=== PATIENT | female | born 1935 | race Asian ===

== ENCOUNTER 2017-05-01 16:07 | Inpatient (IN) | payer MEDICARE, OTHER ==
[~2017-05-01] VITALS: Ht 154.9 cm; Wt 75.9 kg
[2017-05-01] MEDS ORDERED: ASPIRIN 81 MG TABLET CHEW ONE (16:47)
[2017-05-01 17:06] LABS: ASPARTATE AMINO TRANSFERASE 27 U/L (15-37); BLOOD UREA NITROGEN 73 mg/dL (7-18)
[2017-05-01 17:24] LABS: IS PT STATUS REG ER OR PRE ER? YES
[2017-05-01] MEDS ORDERED: ASPIRIN 81 MG TABLET CHEW PO ONE (17:30)
[2017-05-01] MEDS ORDERED: ACETAMINOPHEN 325 MG TABLET PO PRN (19:00)
[2017-05-01] MEDS ORDERED: ONDANSETRON 2MG/ML, 2ML IVPush PRN (19:00)
[2017-05-01] MEDS ORDERED: POLYETHYLENE GLYCOL 17 GM PACKET PO PRN (19:00)
[2017-05-01] MEDS ORDERED: NITROGLYCERIN 0.4 MG BOTTLE (25 TABS) SL PRN (19:00)
[2017-05-01] MEDS ORDERED: morphine SULFATE 10 MG/ML, 1ML IVPush PRN (19:00)
[2017-05-01] MEDS ORDERED: BISACODYL 10 MG SUPP PR PRN (19:00)
[2017-05-01] MEDS ORDERED: GLUCAGON 1 MG IM PRN (20:00)
[2017-05-01] MEDS ORDERED: DEXTROSE 4 GM TAB.CHEW PO PRN (20:00)
[2017-05-01] MEDS ORDERED: DEXTROSE 50%, 50ML SYRINGE IVPush PRN (20:00)
[2017-05-01 20:48] VITALS: BP 167/79
[2017-05-01] MEDS ORDERED: CALC0.25 PO (21:45)
[2017-05-01] MEDS ORDERED: FURO40TA6 PO (21:45)
[2017-05-01] MEDS ORDERED: METO50TA11 PO (21:45)
[2017-05-01] MEDS ORDERED: ISOS30TA8 PO (21:45)
[2017-05-01] MEDS ORDERED: GABA-826 PO (21:45)
[2017-05-01] MEDS ORDERED: ATOR20TA9 PO (21:45)
[2017-05-01] MEDS ORDERED: AMLO10TA2 PO (21:45)
[2017-05-01] MEDS ORDERED: ATORVASTATIN 20 MG TABLET PO SCH (22:00)
[2017-05-01] MEDS: HEPARIN 5,000 UNITS/ML, 1ML SQ SCH (22:17)
[2017-05-01] MEDS: SODIUM CHLORIDE 0.9% 1,000 ML IV SCH (22:17)
[2017-05-01] MEDS: SODIUM CHLORIDE FLUSH 10ML SYR IVF SCH (22:17)
[2017-05-01] MEDS: INSULIN ASPART 100 UNITS/ML, PEN SQ-INSULIN SCH (22:18)
[2017-05-01] MEDS: GABAPENTIN 100 MG CAPSULE PO SCH (22:19)
[2017-05-01 23:51] LABS: IS PT STATUS REG ER OR PRE ER? NO
[2017-05-02 03:01] VITALS: BP 162/75
[2017-05-02 05:03] LABS: BLOOD UREA NITROGEN 72 mg/dL (7-18)
[2017-05-02 05:08] LABS: ASPARTATE AMINO TRANSFERASE 21 U/L (15-37)
[2017-05-02 05:09] LABS: IS PT STATUS REG ER OR PRE ER? NO
[2017-05-02] MEDS ORDERED: DEXTROSE 50%, 50ML VIAL ONE (05:46)
[2017-05-02 06:00] VITALS: BP 171/71
[2017-05-02] MEDS ORDERED: ASPIRIN 81 MG TABLET EC PO SCH (06:00)
[2017-05-02] MEDS: HEPARIN 5,000 UNITS/ML, 1ML SQ SCH ×2 (06:26→12:49)
[2017-05-02] MEDS: INSULIN ASPART 100 UNITS/ML, PEN SQ-INSULIN SCH ×2 (07:00→13:19)
[2017-05-02] MEDS: SODIUM CHLORIDE 0.9% 1,000 ML IV SCH (08:00)
[2017-05-02] MEDS: SODIUM CHLORIDE FLUSH 10ML SYR IVF SCH (08:14)
[2017-05-02] MEDS: GABAPENTIN 100 MG CAPSULE PO SCH (08:14)
[2017-05-02] MEDS ORDERED: REGADENOSON 0.4 MG/5 ML SYRINGE ONE (08:16)
[2017-05-02 08:20] VITALS: BP 157/79
[2017-05-02] MEDS ORDERED: METOPROLOL SUCCINATE 50 MG TAB.ER.24H PO SCH (09:00)
[2017-05-02] MEDS ORDERED: CALCITRIOL 0.25 MCG CAPSULE PO SCH (09:00)
[2017-05-02] MEDS ORDERED: ISOSORBIDE MONONITRATE ER 30 MG TABLET PO SCH (09:00)
[2017-05-02] MEDS ORDERED: AMLODIPINE 5 MG TABLET PO SCH (09:00)
[2017-05-02] MEDS ORDERED: SENNA/DOCUSATE TABLET PO SCH (09:00)
== END 2017-05-02 14:32 | disposition home or self-care (01) | DRG 682 ==
LOC: ED 17:18 → EDIP 18:25 → 5SO 20:22
PROVIDERS: ADMIT Internal Medicine; ATTEND Internal Medicine
DX: N17.9 Acute kidney failure, unspecified (principal); J18.9 Pneumonia, unspecified organism; E87.1 Hypo-osmolality and hyponatremia; I13.0 Hypertensive heart and chronic kidney disease with heart failure and stage 1 through stage 4 chronic kidney disease, or unspecified chronic kidney disease; J98.11 Atelectasis; E11.22 Type 2 diabetes mellitus with diabetic chronic kidney disease; E11.40 Type 2 diabetes mellitus with diabetic neuropathy, unspecified; R07.9 Chest pain, unspecified; E11.65 Type 2 diabetes mellitus with hyperglycemia; E78.00 Pure hypercholesterolemia, unspecified; E78.5 Hyperlipidemia, unspecified; N18.9 Chronic kidney disease, unspecified; I50.9 Heart failure, unspecified; R00.1 Bradycardia, unspecified; Z90.710 Acquired absence of both cervix and uterus; Z90.49 Acquired absence of other specified parts of digestive tract; Z88.5 Allergy status to narcotic agent; Z79.4 Long term (current) use of insulin; Z83.3 Family history of diabetes mellitus
CPT/HCPCS: 36415; 71010; 78452; 80053; 81001; 82436; 82570; 82962; 83036; 83880; 84133; 84300; 84439; 84443; 84484; 85025; 93005; 93017; 99285; J1644; J1815; J2785; A9502; C9898; J7030